=== PATIENT | female | born 1935 | race African-American/Black ===

== ENCOUNTER 2017-01-06 12:39 | Emergency (ER) | payer OTHER ==
[~2017-01-06] VITALS: Ht 160 cm; Wt 75.0 kg
[2017-01-06 15:35] LABS: HEMATOCRIT 37.2 % (36.0-46.0); MCH 28.8 PG (29.0-34.0); MCHC 32.3 G/DL (30.0-36.0); MCV 89.2 FL (83-99); MEAN PLAT.VOLUME 9.2 uM^3 (9.5-12.4); PLATELET COUNT 430 K/uL (156-360); RBC DIS.WIDTH-CV 14.7 % (11.8-14.6); RBC DIS.WIDTH-SD 47.8 % (39-53); RED BLOOD COUNT 4.17 M/uL (3.80-5.20); WHITE BLOOD COUNT 8.1 K/uL (4.1-10.2)
[2017-01-06 15:44] LABS: CHLORIDE 111 mEq/L (99-109); POTASSIUM 3.6 mEq/L (3.7-5.4); SODIUM 145 mEq/L (136-147)
[2017-01-06 15:46] LABS: GLUCOSE 79 mg/dL (70-99)
[2017-01-06 15:47] LABS: ANION GAP 9 MEQ/L (2-14)
[2017-01-06 15:48] LABS: TOTAL BILIRUBIN 0.3 mg/dL (0.0-1.0)
[2017-01-06 15:50] LABS: ALKALINE PHOSPHATASE 99 IU/L (3-129); GFR ESTIMATE (CALCULATED) > 59 mL/min/
[2017-01-06 15:51] LABS: UREA NITROGEN (BUN) 13 mg/dL (9-23)
[2017-01-06] MEDS ORDERED: FLEXERIL10 MG PO (16:08)
[2017-01-06] MEDS ORDERED: MOTRIN600 MG PO (16:08)
[2017-01-06 17:17] VITALS: BP 144/91
== END 2017-01-06 17:17 | disposition home or self-care (01) ==
LOC: EME 12:39
PROVIDERS: Nurse Practitioner Family
DX: M79.604 Pain in right leg (principal); M79.605 Pain in left leg; M25.562 Pain in left knee; M25.511 Pain in right shoulder; M62.838 Other muscle spasm; F17.200 Nicotine dependence, unspecified, uncomplicated
CPT/HCPCS: 73564; 80053; 85027; 93970; 99281; 99284

== ENCOUNTER 2017-04-10 14:35 | Emergency (ER) | payer OTHER ==
[~2017-04-10] VITALS: Ht 162.6 cm; Wt 74.2 kg
[~2017-04-10 14:35] MED LIST: FLEXERIL10 MG PO; MOTRIN600 MG PO
[2017-04-10] MEDS ORDERED: TYLENOL WITH C1 EACH PO (18:51)
[2017-04-10] MEDS ORDERED: MOTRIN600 MG PO (18:55)
[2017-04-10 19:41] VITALS: BP 137/82
== END 2017-04-10 19:41 | disposition home or self-care (01) ==
LOC: EME 14:35
DX: M25.462 Effusion, left knee (principal); S80.02XA Contusion of left knee, initial encounter; M19.012 Primary osteoarthritis, left shoulder; M25.511 Pain in right shoulder; M25.512 Pain in left shoulder; W18.30XA Fall on same level, unspecified, initial encounter; F03.90 Unspecified dementia, unspecified severity, without behavioral disturbance, psychotic disturbance, mood disturbance, and anxiety; I10 Essential (primary) hypertension; F17.200 Nicotine dependence, unspecified, uncomplicated; Z86.718 Personal history of other venous thrombosis and embolism
CPT/HCPCS: 71020; 73030; 73502; 73564; 73700; 93005; 99281; 99285

== ENCOUNTER 2017-05-20 13:33 | Inpatient (IN) | payer OTHER ==
[~2017-05-20] VITALS: Ht 160 cm; Wt 70.6 kg
[~2017-05-20 13:33] MED LIST changes: +TYLENOL WITH C1 EACH PO
[2017-05-20 15:59] LABS: EOSINOPHIL (%) 0.4 % (0-5); HEMATOCRIT 40.4 % (36.0-46.0); IMMATURE GRANULOCYTE (%) 0.4 % (0.0-0.7); INSTRUMENT ABS NEUTROPHIL CT 8.3 K/uL; LYMPHOCYTE COUNT 1.2 K/uL (1.0-2.8); MCH 29.1 PG (29.0-34.0); MCHC 33.2 G/DL (30.0-36.0); MCV 87.8 FL (83-99); MEAN PLAT.VOLUME 9.9 uM^3 (9.5-12.4); MONOCYTE (%) 5.2 % (3-12); MONOCYTE COUNT 0.5 K/uL (0-0.8); NEUTROPHIL (%) 82.1 % (45-76); NEUTROPHIL COUNT 8.3 K/uL (1.8-6.4); PLATELET COUNT 346 K/uL (156-360); RBC DIS.WIDTH-CV 14.6 % (11.8-14.6); RBC DIS.WIDTH-SD 46.7 % (39-53); WHITE BLOOD COUNT 10.2 K/uL (4.1-10.2)
[2017-05-20 16:08] LABS: CHLORIDE 107 mEq/L (99-109); SODIUM 144 mEq/L (136-147)
[2017-05-20 16:09] LABS: GLUCOSE 105 mg/dL (70-99)
[2017-05-20 16:11] LABS: ANION GAP 10 MEQ/L (2-14)
[2017-05-20 16:13] LABS: GFR ESTIMATE (CALCULATED) > 59 mL/min/
[2017-05-20 16:14] LABS: UREA NITROGEN (BUN) 15 mg/dL (9-23)
[2017-05-20 16:20] LABS: TROP-I INTERPRETATION NEGATIVE; TROPONIN-I 0.03 ng/mL (0.0-0.30)
[2017-05-20 16:35] LABS: POTASSIUM 2.4 mEq/L (3.7-5.4)
[2017-05-20] MEDS ORDERED: LISINOPRIL20 MG PO (17:58)
[2017-05-20] MEDS ORDERED: NITROGLYCERIN0.4 MG SL (17:58)
[2017-05-20] MEDS ORDERED: DITROPAN5 MG PO (17:59)
[2017-05-20] MEDS ORDERED: LO-DOSE ASPIRIN81 M1 PO (18:00)
[2017-05-20] MEDS ORDERED: AMLODIPINE BESY10 MG PO (18:00)
[2017-05-20] MEDS ORDERED: IMDUR30 MG PO (18:01)
[2017-05-20] MEDS ORDERED: DONEPEZIL HCL5 MG PO (18:02)
[2017-05-20] MEDS ORDERED: POTASSIUM-9999 MG PO (18:02)
[2017-05-20 19:37] LABS: MAGNESIUM 1.9 mg/dL (1.3-2.7)
[2017-05-20 19:41] LABS: TOTAL BILIRUBIN 1.1 mg/dL (0.0-1.0)
[2017-05-20 19:42] LABS: ALKALINE PHOSPHATASE 91 IU/L (3-129)
[2017-05-20 19:44] LABS: DIRECT BILIRUBIN 0.5 mg/dL (0.0-0.3)
[2017-05-20 22:50] VITALS: BP 166/75
[2017-05-21 03:51] VITALS: BP 145/70
[2017-05-21 06:27] LABS: MCH 28.1 PG (29.0-34.0); MCHC 31.8 G/DL (30.0-36.0); MCV 88.4 FL (83-99); MEAN PLAT.VOLUME 10.1 uM^3 (9.5-12.4); PLATELET COUNT 307 K/uL (156-360); RBC DIS.WIDTH-CV 14.6 % (11.8-14.6); RBC DIS.WIDTH-SD 47.4 % (39-53); RED BLOOD COUNT 4.41 M/uL (3.80-5.20); WHITE BLOOD COUNT 7.8 K/uL (4.1-10.2)
[2017-05-21 06:40] LABS: ANION GAP 7 MEQ/L (2-14); CHLORIDE 111 MEQ/L (99-109); SAMPLE HEMOLYSIS CHECK 0; SAMPLE ICTERIC CHECK 0; SAMPLE LIPEMIA CHECK 0; SODIUM 143 MEQ/L (136-147); TOTAL BILIRUBIN 1.1 MG/DL (0.0-1.0)
[2017-05-21 06:41] LABS: POTASSIUM 3.2 MEQ/L (3.7-5.4)
[2017-05-21 06:46] LABS: ALKALINE PHOSPHATASE 81 IU/L (3-129); GFR ESTIMATE (CALCULATED) > 59 mL/min/; GLUCOSE 82 mg/dL (70-99); HDL CHOLESTEROL 33 MG/DL (Desirable>=50); LDL CHOLESTEROL 82 mg/dL (Desirable<100); NON-HDL CHOLESTEROL 99 mg/dL (Desirable<160); TOTAL CHOLESTEROL 132 mg/dL (Desirable<200); TRIGLYCERIDES 86 MG/DL (Normal: <150); UREA NITROGEN (BUN) 11 mg/dL (9-23)
[2017-05-21 07:50] VITALS: BP 175/75
[2017-05-21 11:25] VITALS: BP 134/63
[2017-05-21 14:51] VITALS: BP 116/68
[2017-05-21 19:21] VITALS: BP 132/55
[2017-05-22 00:13] VITALS: BP 133/70
[2017-05-22 06:33] LABS: ANION GAP 6 MEQ/L (2-14); CHLORIDE 109 MEQ/L (99-109); GFR ESTIMATE (CALCULATED) > 59 mL/min/; GLUCOSE 76 mg/dL (70-99); POTASSIUM 3.4 MEQ/L (3.7-5.4); SAMPLE HEMOLYSIS CHECK 0; SAMPLE ICTERIC CHECK 0; SAMPLE LIPEMIA CHECK 0; SODIUM 140 MEQ/L (136-147); UREA NITROGEN (BUN) 8 mg/dL (9-23)
[2017-05-22 08:01] VITALS: BP 139/63
[2017-05-22 12:58] VITALS: BP 132/59
[2017-05-22 15:44] VITALS: BP 133/60
[2017-05-22 19:30] VITALS: BP 134/67
[2017-05-22 23:45] VITALS: BP 150/65
[2017-05-23 05:31] LABS: EOSINOPHIL (%) 3.6 % (0-5); EOSINOPHIL COUNT 0.2 K/uL (0-0.3); HEMATOCRIT 36.7 % (36.0-46.0); IMMATURE GRANULOCYTE (%) 0.2 % (0.0-0.7); INSTRUMENT ABS NEUTROPHIL CT 3.5 K/uL; LYMPHOCYTE COUNT 1.2 K/uL (1.0-2.8); MCH 28.6 PG (29.0-34.0); MCHC 32.2 G/DL (30.0-36.0); MCV 88.9 FL (83-99); MEAN PLAT.VOLUME 10.4 uM^3 (9.5-12.4); MONOCYTE (%) 7.3 % (3-12); MONOCYTE COUNT 0.4 K/uL (0-0.8); NEUTROPHIL (%) 65.4 % (45-76); NEUTROPHIL COUNT 3.5 K/uL (1.8-6.4); PLATELET COUNT 291 K/uL (156-360); RBC DIS.WIDTH-CV 14.6 % (11.8-14.6); RBC DIS.WIDTH-SD 47.5 % (39-53); RED BLOOD COUNT 4.13 M/uL (3.80-5.20); WHITE BLOOD COUNT 5.3 K/uL (4.1-10.2)
[2017-05-23 05:56] LABS: ANION GAP 6 MEQ/L (2-14); CHLORIDE 108 MEQ/L (99-109); GFR ESTIMATE (CALCULATED) > 59 mL/min/; GLUCOSE 69 mg/dL (70-99); POTASSIUM 3.7 MEQ/L (3.7-5.4); SAMPLE HEMOLYSIS CHECK 0; SAMPLE ICTERIC CHECK 0; SAMPLE LIPEMIA CHECK 0; SODIUM 140 MEQ/L (136-147); UREA NITROGEN (BUN) 6 mg/dL (9-23)
[2017-05-23 07:05] VITALS: BP 151/70
[2017-05-23 09:44] LABS: INTER. NORMALIZED RATIO 1.1; PROTHROMBIN TIME 12.5 SEC (10.2-12.9)
[2017-05-23 11:06] VITALS: BP 150/74
[2017-05-23 15:20] VITALS: BP 134/66
[2017-05-23 23:36] VITALS: BP 114/74
[2017-05-24 04:18] VITALS: BP 171/80
[2017-05-24 07:36] VITALS: BP 134/63
[2017-05-24 15:05] VITALS: BP 121/66
[2017-05-24 23:23] VITALS: BP 121/56
[2017-05-25 06:46] LABS: BASOPHIL COUNT 0.1 K/uL (0-0.1); EOSINOPHIL (%) 5.1 % (0-5); EOSINOPHIL COUNT 0.3 K/uL (0-0.3); HEMATOCRIT 33.9 % (36.0-46.0); IMMATURE GRANULOCYTE (%) 0.3 % (0.0-0.7); INSTRUMENT ABS NEUTROPHIL CT 3.4 K/uL; LYMPHOCYTE COUNT 1.7 K/uL (1.0-2.8); MCH 29.6 PG (29.0-34.0); MCV 89.7 FL (83-99); MEAN PLAT.VOLUME 10.5 uM^3 (9.5-12.4); MONOCYTE (%) 8.8 % (3-12); MONOCYTE COUNT 0.5 K/uL (0-0.8); NEUTROPHIL COUNT 3.4 K/uL (1.8-6.4); PLATELET COUNT 268 K/uL (156-360); RBC DIS.WIDTH-CV 14.9 % (11.8-14.6); RBC DIS.WIDTH-SD 48.6 % (39-53); RED BLOOD COUNT 3.78 M/uL (3.80-5.20)
[2017-05-25 07:17] LABS: ANION GAP 5 MEQ/L (2-14); CHLORIDE 109 MEQ/L (99-109); GFR ESTIMATE (CALCULATED) > 59 mL/min/; GLUCOSE 63 mg/dL (70-99); POTASSIUM 3.7 MEQ/L (3.7-5.4); SAMPLE HEMOLYSIS CHECK 0; SAMPLE ICTERIC CHECK 0; SAMPLE LIPEMIA CHECK 0; SODIUM 140 MEQ/L (136-147); UREA NITROGEN (BUN) 6 mg/dL (9-23)
[2017-05-25 08:00] VITALS: BP 107/59
[2017-05-25 11:41] LABS: POINT-OF-CARE METER ID UU13113725
[2017-05-25 15:43] VITALS: BP 119/70
[2017-05-25 23:23] VITALS: BP 134/60
[2017-05-26 07:21] VITALS: BP 128/70
[2017-05-26 17:34] VITALS: BP 138/70
[2017-05-26] MEDS ORDERED: THERAGRAN1 TABLET PO (20:03)
[2017-05-26] MEDS ORDERED: CYANOCOBALAM1000 MCG PO (20:03)
[2017-05-26] MEDS ORDERED: HYDROCODON-ACE1 EAC7 PO (20:04)
[2017-05-26 23:42] VITALS: BP 141/63
[2017-05-27 06:45] VITALS: BP 143/62
== END 2017-05-27 12:48 | disposition home health service (06) | DRG 981 ==
LOC: EME → EDBD 13:33 → EME 13:33 → EDOF 19:14 → ENRESERV 19:28 → CANRESERV 20:04 → 5EAST 21:15 → EDOF 21:15 → ENRESERV 21:17 → 5EAST 22:27
PROVIDERS: Emergency Medicine; Family Medicine Sports Medicine; Hospitalist; Internal Medicine; Physician Assistant; Physician Assistant Medical
PROC: 0QH704Z Insertion of Internal Fixation Device into Left Upper Femur, Open Approach (ICD-10-PCS; principal; 2017-05-23)
DX: R55 Syncope and collapse (principal); S72.012A Unspecified intracapsular fracture of left femur, initial encounter for closed fracture; W19.XXXA Unspecified fall, initial encounter; Y92.009 Unspecified place in unspecified non-institutional (private) residence as the place of occurrence of the external cause; E87.6 Hypokalemia; R15.9 Full incontinence of feces; R29.6 Repeated falls; R41.82 Altered mental status, unspecified; S80.02XA Contusion of left knee, initial encounter; I10 Essential (primary) hypertension; M19.90 Unspecified osteoarthritis, unspecified site; F03.90 Unspecified dementia, unspecified severity, without behavioral disturbance, psychotic disturbance, mood disturbance, and anxiety; E53.8 Deficiency of other specified B group vitamins; E78.5 Hyperlipidemia, unspecified; I25.10 Atherosclerotic heart disease of native coronary artery without angina pectoris; R32 Unspecified urinary incontinence; E04.2 Nontoxic multinodular goiter; F17.210 Nicotine dependence, cigarettes, uncomplicated; Z85.028 Personal history of other malignant neoplasm of stomach; Z96.651 Presence of right artificial knee joint; Z82.49 Family history of ischemic heart disease and other diseases of the circulatory system
CPT/HCPCS: 70551; 71010; 73502; 73721; 76000; 76536; 80048; 80053; 80061; 80076; 81003; 82306; 82607; 82948; 83735; 84100; 84439; 84443; 84484; 85025; 85027; 85379; 85610; 85730; 86850; 86900; 86901; 87040; 87077; 87086; 90686; 93005; 93880; 99281; 99285; C1713; J0690; J1170; J1644; J2250; J2270; J2405; J3010; J3420; J3480; J7030

== ENCOUNTER 2017-06-04 17:14 | Observation (INO) | payer OTHER ==
[~2017-06-04] VITALS: Ht 160 cm; Wt 64.5 kg
[~2017-06-04 17:14] MED LIST changes: +AMLODIPINE BESY10 MG PO; +CYANOCOBALAM1000 MCG PO; +DITROPAN5 MG PO; +DONEPEZIL HCL5 MG PO; +HYDROCODON-ACE1 EAC7 PO; +IMDUR30 MG PO; +LISINOPRIL20 MG PO; +LO-DOSE ASPIRIN81 M1 PO; +NITROGLYCERIN0.4 MG SL; +POTASSIUM-9999 MG PO; +THERAGRAN1 TABLET PO
[2017-06-04 18:07] LABS: HEMATOCRIT 39.5 % (36.0-46.0); MCH 29.4 PG (29.0-34.0); MCHC 33.2 G/DL (30.0-36.0); MCV 88.6 FL (83-99); MEAN PLAT.VOLUME 9.5 uM^3 (9.5-12.4); PLATELET COUNT 407 K/uL (156-360); RBC DIS.WIDTH-CV 14.7 % (11.8-14.6); RED BLOOD COUNT 4.46 M/uL (3.80-5.20); WHITE BLOOD COUNT 9.2 K/uL (4.1-10.2)
[2017-06-04 18:17] LABS: CHLORIDE 107 mEq/L (99-109)
[2017-06-04 18:18] LABS: SODIUM 141 mEq/L (136-147)
[2017-06-04 18:20] LABS: GLUCOSE 105 mg/dL (70-99)
[2017-06-04 18:21] LABS: ANION GAP 9 MEQ/L (2-14)
[2017-06-04 18:22] LABS: TOTAL BILIRUBIN 0.8 mg/dL (0.0-1.0)
[2017-06-04 18:23] LABS: ALKALINE PHOSPHATASE 87 IU/L (3-129); GFR ESTIMATE (CALCULATED) > 59 mL/min/
[2017-06-04 18:25] LABS: UREA NITROGEN (BUN) 10 mg/dL (9-23)
[2017-06-04 21:52] LABS: MAGNESIUM 1.9 mg/dL (1.3-2.7)
[2017-06-05 02:37] LABS: ADD MIUA? YES; BILIRUBIN NEGATIVE; BLOOD MODERATE; GLUCOSE (STRIP) NEGATIVE; KETONES 5; LEUKOCYTES TRACE; NITRITE NEGATIVE; PROTEIN (STRIP) 100; SPECIFIC GRAVITY 1.014 (1.000-1.030)
[2017-06-05 02:40] LABS: COLOR YELLOW ((YELLOW))
[2017-06-05 02:54] LABS: AMORPHOUS URATES CRYSTALS 2+; BACTERIA 3+ /HPF; CASTS PRESENT /LPF; CRYSTALS PRESENT; EPITHELIAL CELLS 2+ /HPF; FINE GRANULAR CASTS 0-5 /LPF; MUCUS 2+ /LPF; RED BLOOD CELLS 0-5 /HPF (0-5); UCUL ADDED? YES
[2017-06-05 14:47] LABS: CHLORIDE 110 mEq/L (99-109); POTASSIUM 3.5 mEq/L (3.7-5.4); SODIUM 143 mEq/L (136-147)
[2017-06-05 14:49] LABS: GLUCOSE 81 mg/dL (70-99)
[2017-06-05 14:50] LABS: ANION GAP 10 MEQ/L (2-14)
[2017-06-05 14:53] LABS: GFR ESTIMATE (CALCULATED) > 59 mL/min/
[2017-06-05 14:54] LABS: UREA NITROGEN (BUN) 11 mg/dL (9-23)
[2017-06-05 16:48] VITALS: BP 147/68
[2017-06-05 19:20] VITALS: BP 111/55
[2017-06-05 23:29] VITALS: BP 106/57
[2017-06-06 03:59] VITALS: BP 115/56
[2017-06-06 08:30] VITALS: BP 124/59
[2017-06-06] MEDS ORDERED: K-DUR20 MEQ PO (12:27)
[2017-06-06 12:28] VITALS: BP 112/57
== END 2017-06-06 15:45 ==
LOC: EME 17:14 → EDOF 21:17 → CANRESERV 21:18 → ENRESERV 21:18 → 5WEST 06-05 16:44
PROVIDERS: Emergency Medicine; Internal Medicine
DX: E87.6 Hypokalemia (principal); T76.01XA Adult neglect or abandonment, suspected, initial encounter; Z68.26 Body mass index [BMI] 26.0-26.9, adult; R26.89 Other abnormalities of gait and mobility; Z96.641 Presence of right artificial hip joint; F03.90 Unspecified dementia, unspecified severity, without behavioral disturbance, psychotic disturbance, mood disturbance, and anxiety; I25.10 Atherosclerotic heart disease of native coronary artery without angina pectoris; I10 Essential (primary) hypertension; K59.00 Constipation, unspecified; E78.5 Hyperlipidemia, unspecified; Z86.718 Personal history of other venous thrombosis and embolism; Z79.82 Long term (current) use of aspirin; Z87.891 Personal history of nicotine dependence; Z85.028 Personal history of other malignant neoplasm of stomach; Z82.49 Family history of ischemic heart disease and other diseases of the circulatory system
CPT/HCPCS: 80048; 80053; 81003; 83735; 85027; 87077; 87086; 87186; 97530 GO; 99281; 99285; G0378; G8978 GP CK; G8979 CJ; G8980 GP CK; G8987 CK; G8987 GO CL; G8988 GO CH; G8988 GO CK; G8989 GO CK